=== PATIENT | male | born 1950 | race Caucasian/White ===

== ENCOUNTER 2018-01-12 04:35 | Observation (INO) | payer OTHER ==
[2018-01-12] MEDS ORDERED: ASPIRIN CHEWABLE PO STA (05:00)
[2018-01-12] MEDS ORDERED: ASPIRIN CHEWABLE ONE (05:02)
--- NOTE | 2018-01-12 05:04 | ED.PDOC ---
General ED Provider: Dr. MERVIN CHÁVEZ Chief Complaint: Chest Pain Stated Complaint: Woke up with mid sternal chest pain, checked BP, was high, came for the evaluation, chest pain resolved now,. Was on Statins, but was stopped by PMD. no headache, or blurry vision Time Seen by Physician: 05:01 Mode of Arrival: Walk-In Information Source: Patient Primary Care Provider: LIUS MISHRA Nursing and Triage Documentation Reviewed and Agree: Yes Reviewed sepsis parameters & appropriate labs ordered?: No System Inflammatory Response Syndrome: Not Applicable Sepsis Protocol: For patient's 13 years and over: Temp is 96.8 and below OR 101 and greater Pulse >90 BPM Resp >20/minute Acutely Altered Mental Status Are patient's symptoms suggestive of a new infection, such as: -Pneumonia -Skin, Soft Tissue -Endocarditis -UTI -Bone, Joint Infection -Implantable Device -Acute Abdominal Infection -Wound Infection -Meningitis -Blood Stream Catheter Infection -Unknown Cardiovascular Complaint Exam - Chest Pain Complaint/Exam Onset: Sudden Symptoms Are: Still present Initial Severity: Moderate Current Severity: Moderate Location: Reports: Midsternal Pain Radiates: Reports: None Character: Reports: Aching, Tightness Aggravating: Reports: None Alleviating: Reports: None Associated Signs and Symptoms: Denies: Diaphoresis, Nausea, Vomiting, Fever, Palpitations, Cough, Hemoptysis, Back pain, Abdominal pain, Dizziness, Short of air, Calf pain, Calf swelling Related Surgical History: Reports: None History of Healthcare-Acquired Pneumonia: Reports: No AMI/ACS Risk Factors: Reports: None TAD Risk Factors: Reports: None Pulmonary Embolism Risk Factors: Reports: None Prior Care for this Complaint: No Recent Stress Test: No Recent Echo/LV Function: No JVD Present: No Subcutaneous Emphysema Present: No Diminshed Breath Sounds: No Reproducible Chest Wall Pain: No Bilateral Pulses Present: No Unequal Pulses Noted: No If Risk Factors for AMI/ACS Consider: EKG, Cardiac Enzymes, Serial Studies, Oxygen, Aspirin Differential Diagnoses: ACS, Stable Angina Review of Systems - Review Of Systems Constitutional: Reports: No symptoms Eyes: Reports: No symptoms Ears, Nose, Mouth, Throat: Reports: No symptoms Respiratory: Reports: No symptoms Cardiac: Reports: Chest pain GI: Reports: No symptoms : Reports: No symptoms Musculoskeletal: Reports: No symptoms Skin: Reports: No symptoms Neurological: Reports: No symptoms Endocrine: Reports: No symptoms Hematologic/Lymphatic: Reports: No symptoms All Other Systems: Reviewed and Negative Past Medical History - Past Medical History Previously Healthy: Yes Endocrine: Reports: Dyslipidemia Cardiovascular: Reports: None Respiratory: Reports: None Hematological: Reports: None Gastrointestinal: Reports: None Genitourinary: Reports: None Neuro/Psych: Reports: None Musculoskeletal: Reports: None Cancer: Reports: None - Surgical History General Surgical History: Reports: None - Family History Family History: Reports: None - Social History Smoking Status: Never smoker Hx Substance Use: No Alcohol Screening: None - Immunizations Tetanus Shot up to Date: Yes Physical Exam - Physical Exam Appearance: Well-appearing, No pain distress, Well-nourished Eyes: TIM, EOMI, Conjunctiva clear ENT: Ears normal, Nose normal, Oropharynx normal Respiratory: Airway patent, Breath sounds clear, Breath sounds equal, Respirations nonlabored Cardiovascular: RRR, Pulses normal, No rub, No murmur GI/: Soft, Nontender, No masses, Bowel sounds normal, No Organomegaly Musculoskeletal: Normal strength, ROM intact, No edema, No calf tenderness Skin: Warm, Dry, Normal color Neurological: Sensation intact, Motor intact, Reflexes intact, Cranial nerves intact, Alert, Oriented Psychiatric: Affect appropriate, Mood appropriate Interpretation - Radiology Interpretation Radiology Interpretation By: ED Physician Radiology Results: Negative Exam Interpreted: CXR - EKG Interpretation Time of EKG #1: 05:00 Rate: Normal Rhythm: Sinus Ectopy: None [place]: NL ST Segment: Other (st elevation) Re-Evaluation - Re-Evaluation Time of Re-Evaluation: 06:20 Status: Improved Physician Notification - Case Discussed Time of Notification: 06:31 (Dr Villanueva, advised to get CE) Critical Care Note - Critical Care Note Total Time (mins): 30 Course - Course Hematology/Chemistry: 01/12/18 05:05 01/12/18 05:05 Orders, Labs, Meds: Lab Review 01/12/18 01/12/18 01/12/18 05:05 05:05 05:05 WBC 9.67 RBC 4.96 Hgb 15.9 Hct 43.1 MCV 86.9 MCH 32.1 H MCHC 36.9 H RDW Coeff of [place] 13.4 Plt Count 249 Immature Gran % (Auto) 0.3 Neut % (Auto) 64.6 Lymph % (Auto) 23.2 [place] % (Auto) 8.7 Eos % (Auto) 2.6 Baso % (Auto) 0.6 Immature Gran # (Auto) 0.0 Neut # (Auto) 6.3 Lymph # (Auto) 2.2 [place] # (Auto) 0.8 Eos # (Auto) 0.3 Baso # (Auto) 0.1 Sodium 142 Potassium 4.2 Chloride 107 Carbon Dioxide 24 Anion Gap 15.2 BUN 14 Creatinine 0.88 Estimated GFR (MDRD) 86.00 BUN/Creatinine Ratio 15.90 Glucose 115 Calcium 9.3 Total Bilirubin 0.7 AST 120 H ALT 100 H Alkaline Phosphatase 88 Total Creatine Kinase 119 CK-MB (CK-2) 2.2 CK-MB (CK-2) % 1.15447 Troponin I < 0.0100 B-Natriuretic Peptide 25 Total Protein 6.9 Albumin 3.9 Globulin 3.0 Albumin/Globulin Ratio 1.30 Orders Category Date Time Status EKG-(ED ONLY) Stat CARDIO 01/12/18 05:00 Completed EKG-(ED ONLY) Stat CARDIO 01/12/18 05:41 Completed ED IV/MEDIPORT/POWERPORT .ONCE EMERGENCY 01/12/18 05:06 Active B-TYPE NATRIURETIC PEPTIDE Stat LAB 01/12/18 05:05 Completed CBC W/ AUTO DIFF Stat LAB 01/12/18 05:05 Completed COMPREHENSIVE METABOLIC PANEL Stat LAB 01/12/18 05:05 Completed CREATINE KINASE Stat LAB 01/12/18 05:05 Completed CREATINE KINASE Stat LAB 01/12/18 05:05 Received TROPONIN I Stat LAB 01/12/18 05:05 Completed TROPONIN I Stat LAB 01/12/18 05:05 Received 0.9 % Sodium Chloride [Saline Flush] MEDS 01/12/18 05:06 Active 1 syr IVF PRN PRN Aspirin [Aspirin Chewable] MEDS 01/12/18 05:02 Discontinued 324 mg .ROUTE .STK-MED ONE Aspirin [Aspirin Chewable] MEDS 01/12/18 05:00 Discontinued 324 mg PO ONCE STA Nitroglycerin [Nitrostat] MEDS 01/12/18 05:06 Discontinued 0.4 mg SL ONCE STA Sodium Chloride 0.9% [Sodium Chloride] 1,000 ml MEDS 01/12/18 05:06 Active IV 100 mls/hr CHEST, 2 VIEWS PA & LAT Stat RADS 01/12/18 05:00 Completed Medications Generic Name Dose Route Start Last Admin Trade Name Freq PRN Reason Stop Dose Admin Sodium Chloride 1,000 mls @ 100 mls/hr 01/12/18 05:06 01/12/18 05:16 Sodium Chloride IV 01/12/18 15:05 100 mls/hr .Q10H STA Administration Sodium Chloride 1 syr 01/12/18 05:06 Saline Flush IVF PRN PRN To flush IV Discontinued Medications Generic Name Dose Route Start Last Admin Trade Name Freq PRN Reason Stop Dose Admin Aspirin 324 mg 01/12/18 05:00 01/12/18 05:05 Aspirin Chewable PO 01/12/18 05:01 324 mg ONCE STA Administration Nitroglycerin 0.4 mg 01/12/18 05:06 01/12/18 05:14 Nitrostat SL 01/12/18 05:07 0.4 mg ONCE STA Administration Vital Signs: Temp Pulse Resp BP Pulse Ox 01/12/18 04:36 98.2 F 53 L 20 207/99 H 98 DM Risk Score Age >/= 65: Yes >/= 3 CAD Risk Factors: No Known CAD (Stenosis >/= 50%): No ASA Use in Past 7 Days: No Severe Angina (>/= 2 episodes in 24 hours): No EKG ST Changes >/= 0.5mm: Yes DM Total Score: 2 DM Risk Score: Risk Score Odds of by 30D 0 0.1 (0.1-0.2) 1 0.3 (0.2-0.3) 2 0.4 (0.3-0.5) 3 0.7 (0.6-0.9) 4 1.2 (1.0-1.5) 5 2.2 (1.9-2.6) 6 3.0 (2.5-3.6) 7 4.8 (3.8-6.1) Departure - Departure Time of Disposition: 06:27 Disposition: PLACED OBSERVATION Discharge Problem: Chest pain Instructions: Chest Pain (ED) Condition: Stable Pt referred to PMD for follow-up: Yes IPMP verified?: No Allergies/Adverse Reactions: Allergies Penicillins Adverse Reaction (Verified 01/12/18 04:45) Home Medications: Ambulatory Orders 1 [No Reported Medications] 01/12/18 Disposition Discussed With: Patient
[2018-01-12] MEDS ORDERED: SODIUM CHLORIDE 1,000 ML IV STA (05:06)
[2018-01-12] MEDS ORDERED: NITROSTAT SL STA (05:06)
--- NOTE | 2018-01-12 05:23 | DI ---
EXAM: Two-view chest HISTORY: Chest pain COMPARISON: None. FINDINGS: The cardiac silhouette is normal in size. Atherosclerotic changes are seen involving the aortic arch. Calcified lymph nodes are seen in the AP window. There are calcified granulomas within the left lung. There is no evidence of infiltrate or effusion. IMPRESSION: Benign granulomatous changes without evidence of active pulmonary disease.
[2018-01-12] MEDS ORDERED: ZESTRIL PO STA (06:56)
[2018-01-12 10:05] VITALS: BMI 25.1
[2018-01-12] MEDS: ZESTRIL PO SCH (10:20)
[2018-01-12] MEDS: LOVENOX SUBCUT SCH (12:25)
[2018-01-12] MEDS: SODIUM CHLORIDE 1,000 ML IV SCH ×3 (15:10→23:46)
[2018-01-13] MEDS: SODIUM CHLORIDE 1,000 ML IV SCH ×2 (07:21→16:03)
[2018-01-13] MEDS: ZESTRIL PO SCH (08:42)
[2018-01-13] MEDS: LOVENOX SUBCUT SCH (08:43)
[2018-01-13 09:19] VITALS: BP 139/77; TEMP 98.7
[2018-01-13] MEDS ORDERED: ASPIRIN CHEWABLE PO SCH (11:00)
[2018-01-13] MEDS ORDERED: ASPIRIN EC PO SCH (11:15)
[2018-01-13] MEDS ORDERED: ASPIRIN EC ONE (11:24)
--- NOTE | 2018-01-13 13:44 | CT ---
EXAM: CT ABDOMEN AND PELVIS HISTORY: Upper abdominal pain for 2-3 days. Elevated enzymes TECHNIQUE: CT abdomen and pelvis without intravenous contrast. Images were reconstructed using 5 mm section thickness. Reformations were prepared. COMPARISON: None FINDINGS: Diagnostic limitations exist without including contrast enhanced images. No focal hepatic lesions id entified. A few splenic calcifications. The gallbladder is packed with small gallstones. Pancreas and adrenal glands are within normal limits. Kidneys and ureters are within normal limits. Mild ath erosclerotic disease. Stomach is within normal limits. Normal appendix. Bowel gas pattern is nonob structive. Urinary bladder is normal. No prostate enlargement. There is no ascites. No ventral abd ominal wall hernia. Transitional vertebral body anatomy at the lumbosacral junction. Lung bases are free of infiltrate. No pneumoperitoneum IMPRESSION: The gallbladder is packed with gallstones. No obvious pericholecystic stranding or fluid or gallbladder wall thickening. Otherwise findings within normal limits.
--- NOTE | 2018-01-13 14:50 | HP ---
CHIEF COMPLAINT: Epigastric pain (I asked the patient to pinpoint the pain with his finger and he pointed to an area below the sternum). HISTORY OF PRESENT ILLNESS: The patient woke up about three o'clock in the morning with epigastric pain and nausea but no vomiting or diarrhea. He registered in the emergency room at 4: 36 a.m. 1 hour and 36 minutes from the time of pain. The patient during that time denied any pain or the pain has resolved. He was concerned about the pain since he never had this pain before that he wanted to be checked out and assured it is not his heart that was giving the pain. He describes the pain as some sort of indigestion. The patient's workup in the emergency room revealed no acute changes in the electrocardiogram and the cardiac enzymes and isoenzymes were normal and the repeat troponin, hours after the first one, was still normal. The patient was then admitted for further workup. The emergency room doctor noted midsternal chest pain as well as the nurse on intake although she mentioned epigastric pain. The ER M.D. also noted midsternal pain. The patient categorically told me that he did not have any chest pain and pointed to the area below the sternum in the epigastric region. Workup in the emergency room showed an elevated AST and ALT. Chest x-ray was unremarkable. This patient again was admitted for further workup and stress echocardiogram to have some certainty that the pain was not cardiac in origin. The patient was told to have abnormal lipids and was on statin medication but he stopped the medication on his own because of some joint aches, maybe muscle. He had gained some weight, use to weigh about 145 and the patient now registers at 170 lbs, 5'9", BMI 25.1. He claimed to go yearly for yearly examination and also had colonscopy recently. FAMILY HISTORY: Father had history of cardiac problems and some members of the paternal family had myocardial infarction. Mother had cardiac disorders and congestive heart failure. Sister has cardiac disorders and some thyroid disease in the family. SOCIAL HISTORY: The patient is , never did smoke, no alcoholic beverages. He is not on any medication now since he stopped the statin medication. MEDICATIONS: (prior to this admission) None ALLERGIES: THE PATIENT HAS REACTION TO PENICILLIN REVIEW OF SYSTEMS: CONSTITUTIONAL: The patient has no fever, no chills and no significant fatigue. SECURITY MANAGER: Denies any headaches, syncope or seizure disorders. VISUAL: Denies any double vision, blurred or loss of vision. AUDITORY: Hearing is good and denies any ringing pain or drainage in both ears. RESPIRATORY: Denies any significant cough, no shortness of breath on exertion. CARDIOVASCULAR: The patient has denied any chest pain although he had some epigastric pain with nausea that lasted for about 1 1/2 hours and then resolved. GASTROINTESTINAL: The patient has epigastric pain with nausea but no vomiting or diarrhea and had elevated AST and ALT. GENITOURINARY: Denies any pain on urination. Denies any frequency. MUSCULOSKELETAL: Denies any significant joint pains since he stopped the statin. ENDOCRINE: Negative. INTEGUMENT: Denies any rash or pruritus. HEMATOLOGIC: No history of prolonged bleeding. PSYCHIATRIC: Affect is normal. PHYSICAL EXAMINATION: GENERAL: 67-year-old male admitted to the hospital because of epigastric pain with nausea that lasted for an hour and one-half. No diaphoresis. He presented to the emergency room and was noted to have an elevated AST and ALT with normal cardiac enzymes and unremarkable electrocardiogram. HEAD: Unremarkable. Scalp - no active dermatitis. Face is symmetrical and equal with no facial redness. No significant tenderness in the frontomaxillary sinus areas to palpation and/or pressure. EYES: Pupils equal/reactive to light. Conjunctivae not pale. Sclerae not icteric. MOUTH: Unremarkable. THROAT: No inflammation, tumors or exudate. NECK: No masses. No bruit. No tenderness. No rigidity. CHEST: Symmetrical and equal with good expansion with no remarkable tenderness. LUNGS: Clear to auscultation in both sides. HEART: Audible and regular with good tones. No murmurs. ABDOMEN: Flat, soft with no remarkable tenderness. No guarding. Bowel sounds active. No masses palpable. EXTERNAL GENITALIA: Not examined. RECTAL: Not done. LOWER EXTREMITIES: Symmetrical and equal with no significant edema. Pedal pulses are present. UPPER EXTREMITIES: Symmetrical and equal. ASSESSMENT: 1. ACUTE GALLBLADDER COLIC 2. ELEVATED TRANSAMINASE PROBABLY SECONDARY TO #1 3. HISTORY OF STATIN USE BUT STOPPED THE MEDICATION BY HIMSELF 4. HISTORY OF DYSLIPIDEMIA LEADING TO THE USE OF STATIN MTDD
[2018-01-13] MEDS ORDERED: PRAVACHOL PO SCH (21:00)
[2018-01-13] MEDS ORDERED: ZESTRIL PO SCH (21:00)
--- NOTE | 2018-01-14 12:05 | STRESSECHO ---
Date of Test: 01/13/18 Reason for Exam: CHEST PAIN Ordering Physician: DR. PARAG HERNANDEZ, HOSPITALIST/ DR. LUIS MISHRA [place] Physical Findings: S1, S2, NO S3 Resting EKG: SINUS RHYTHM/ NO ACUTE CHANGES Target Heart Rate: 129/152 S-T SEGMENT STAGE MPH/GRADE HEART RATE BPM BLOOD PRESSURE MMHG RHYTHM +/- ELEVATION DEPRESSION SYMPTOMS,COMMENTS At Rest 60 168/90 SR X NONE 1 1.7/10% 102 172/84 SR X NONE 2 2.5/12% 133 184/84 SR X NONE 3 3.4/14% 4 4.2/16% 5 5.0/18% Immediately after 155 SR X FATIGUE Durations of Exercise: 7:00 Maximum Heart Rate Reached: 155 Reason for Termination: FATIGUE 3 MINUTES POST EXERCISE: HR 90 BPM, 190/102 MMHG, SR, +/-, NO COMMENTS 5 MINUTES POST EXERCISE: HR 80 BPM, 166/96 MMHG, SR, +/-, NO COMMENTS INTERPRETATION: 98% OXYGEN SATURATION WITH EXERCISE ON ROOM AIR METS 10.1 1. NO EVIDENCE OF ISCHEMIC ST-T WAVE CHANGES 2. NO CHEST PAIN OR DISCOMFORT OR EPISODES OF PAIN 3. FEW ISOLATED PAC'S, ONE PVC 4. BLOOD PRESSURE RESPONSE--HYPERTENSION AT REST AND WITH EXERCISE AND POST EXERCISE NORMAL LEFT VENTRICULAR CONTRACTILITY RESTING AND POST EXERCISE MTDD
--- NOTE | 2018-01-14 12:24 | ECHOSTRESS ---
Date of Exam: 01/13/18 Ordering Physician: DR. ZEUS HERNANDEZ Reason for Echo: CHEST PAIN, STRESS TEST--NO ISCHEMIA M-Mode Normal Adult Results LV Dimensions Normal Adult Results AoV Opening excursions >1.6 LVEDD-base- 3.5-5.8 Ao root dimensions 2.0-3.7 LVESD-base- 3.1-4.6 L. Atrium dimensions 1.9-3.8 Post. Wall thickness 0.8-1.1 IV septum (thickness) 0.7-1.2 Post. Wall excursion 0.72-1.3 Septal motion Systolic motion R. Ventricular cavity 1.5-2.0 LVEF 60% Paradoxical septal wall motion 2-D: NORMAL LEFT VENTRICULAR CONTRACTILITY--RESTING AND POST EXERCISE M-MODE: MV: AV: TV: PV: CHAMBER SIZE: WALL MOTION: NORMAL LEFT VENTRICULAR CONTRACTILITY--RESTING AND POST EXERCISE PERICARDIUM: INTERPRETATION: 1. NORMAL LEFT VENTRICULAR CONTRACTILITY--RESTING AND POST EXERCISE MTDD
--- NOTE | 2018-01-14 12:29 | ECHO2D ---
Date of Exam: 01/13/18 Ordering Physician: DR. PARAG HERNANDEZ, HOSPITALIST/ DR. LUIS MISHRA Room #: [id number] Reason for Echo: CHEST PAIN, HYPERTENSION, DYSLIPIDEMIA M-Mode Normal Adult Results LV Dimensions Normal Adult Results AoV Opening excursions >1.6 >1.6 LVEDD-base- 3.5-5.8 4.7 Ao root dimensions 2.0-3.7 3.6 LVESD-base- 3.1-4.6 L. Atrium dimensions 1.9-3.8 3.9 Post. Wall thickness 0.8-1.1 1.1 IV septum (thickness) 0.7-1.2 1.2 Post. Wall excursion 0.72-1.3 NORMAL Septal motion NORMAL Systolic motion R. Ventricular cavity 1.5-2.0 NORMAL LVEF 60% 57% Paradoxical septal wall motion NORMAL 2-D : 2-D M Mode Echocardiogram was performed using apical four chamber and left parasternal long and short axis views. Mitral, tricuspid and aortic valves appear to be normal. Contractility of the left ventricle seems to be normal, so is the cavity size. Left atrial cavity size and aortic root appear to be normal. There is no pericardial effusion. There is no thrombus noted in the left ventricular or left aortic cavity. No mitral valve prolapse noted. M-MODE: MV: NORMAL AV: NORMAL TV: NORMAL PV: CHAMBER SIZE: NORMAL WALL MOTION: NORMAL PERICARDIUM: NORMAL INTERPRETATION: 1. BORDERLINE LEFT VENTRICULAR HYPERTROPHY 2. NORMAL VALVES 3. NORMAL LEFT VENTRICULAR CONTRACTILITY MTDD
--- NOTE | 2018-01-15 09:22 | DS ---
PATIENT IDENTIFICATION: 67 year old male experienced sudden epigastric pain upon waking about 3 o'clock in the morning. The patient was concerned that it could be his heart, so he presented to the emergency room and was seen at 4:46 a.m. The pain had resolved by then. The patient never had any chest pain according to the history that I got and I asked him to point to me where the pain is and it is below the sternum in the epigastric area. He had nausea, but no diaphoresis. He never had any pain of this kind that he can remember. The patient in the emergency room had a work up towards cardiac problems and the cardiac enzymes and isoenzymes her negative, but he AST and ALT were elevated. HOSPITAL COURSE: The patient on examination was alert, oriented times four. Not dyspneic, nor tachypneic without any pain. LUNGS: Clear to auscultation. HEART: Normal sinus rhythm. ABDOMEN: No significant tenderness or muscular guarding. Bowel sounds are active. LOWER EXTREMITIES: Pedal pulses were present and no tenderness in the calf muscles. The patient was advised of the consultation with Dr. Hernandez in order to rule out any cardiac problems. He did undergo stress echo and the stress test was negative for any ischemic changes. The echocardiogram also was unremarkable or normal. I do not have the report in front of me, but this was given to me verbally. The patient did have a hypertensive response to exercise. The patient had been taking statins previously, but he stopped the medication on his own because of some muscular and joint pains. That seemed to have resolved after he stopped the medication. I did advise about doing a CT scan of the abdomen and pelvis, since there is a possibility or a good probability that maybe the pain was coming from the gallbladder or peptic ulcer disease and probably Helicobacter gastritis. CT scan showed multiple cholelithiasis and he was advised of this and was given a copy of the report. The patient at the time of discharge was alert, ambulatory without any pain in the epigastric or chest area. He was cheerful and cooperative. LUNGS: Clear. HEART: Normal sinus rhythm. He did tell me that he is going to call his physician on 01/14/2018. I felt that he probably needed to have his gallbladder out since there are multiple stones. I explained to him how the pain is with gallbladder stones. The AST and ALT has decreased towards normal. FINAL DIAGNOSES: 1. ACUTE GALLBLADDER COLIC 2. CHOLELITHIASIS 3. HYPERTENSIVE RESPONSE TO EXERCISE 4. HISTORY OF STATIN INTOLERANCE. HE COULD NOT REMEMBER THE NAME. The patient received a dose of Pravachol 40 mg on the day of discharge. Lisinopril 20 mg and aspirin 81 mg. This patient had been on Lovenox prophylactic dose while in the hospital. I did advise the patient that I would not continue the blood pressure medication , since his blood pressure is normal with rest and had been normal while he was in the hospital. I would not also write the medication for the cholesterol, since he had some reaction to the medication. The decision on how to treat him with the above results would depend upon on his primary provided. The patient did show a good understanding, including his slasher runner who was present during the course of the discussion. SATHISH
--- NOTE | 2018-01-16 10:01 | CONS ---
DATE OF CONSULTATION: 01/13/18 (CONSULTATION FOLLOWUP) REASON FOR CONSULTATION/HISTORY OF PRESENT ILLNESS: This is a 67-year-old male seen and evaluated for chest pain, mostly epigastric pain. REVIEW OF SYSTEMS: CONSTITUTIONAL: No night sweats. No fatigue, malaise, lethargy. No fever or chills. HEENT: Eyes: No visual changes. No eye pain. No eye discharge. ENT: No sinus drainage. No epistaxis. No sinus pain. No sore throat. No odynophagia. No ear pain. No congestion. RESPIRATORY: No cough, no congestion. No hemoptysis. No shortness of breath. CARDIOVASCULAR: No angina symptoms. No CHF symptoms. No atypical chest pain for CAD. No palpitations. No orthopnea. GASTROINTESTINAL: No abdominal pain. No nausea or vomiting. No diarrhea or constipation. No hematemesis. No hematochezia. GENITOURINARY: No urgency. No frequency. No dysuria. No hematuria. No obstructive symptoms. No discharge. No pain. No significant abnormal bleeding. MUSCULOSKELETAL: No musculoskeletal pain. No joint swelling. NEUROLOGICAL: No headache. No neck pain. No syncope. No seizures. No dizziness. PSYCHIATRIC: Not anxious. No depression. No suicidal thoughts. No homicidal thoughts. SKIN: No rash. No lesions. No wounds. ENDOCRINE: No unexplained weight loss. No weight gain. HEMATOLOGIC/LYMPHATIC: No anemia. No purpura. No petechiae. No prolonged or excessive bleeding. No palpable lymph nodes. PHYSICAL EXAMINATION: GENERAL: The patient is oriented to time, place and person. VITAL SIGNS: Temperature 98, pulse 55, respiratory rate 20, BP 128/84. Pulse ox 99% on room air. HEENT: Head normocephalic, atraumatic. Eyes: Extraocular muscles are intact. Pupils are equal, round and reactive to light and accommodation. Ears: No lesions. Nose appeared normal. Throat: No exudate or erythema. NECK: Supple. No JVD, no carotid bruit. No lymphadenopathy or thyromegaly. LUNGS: Clear to auscultation. Percussion note normal. Chest symmetrical. HEART: S1, S2, no S3. No murmurs. No cyanosis or clubbing. No ascites. Pulses: Dorsalis pedis and posterior tibial pulses +1 to +2 both sides. ABDOMEN: Soft. Nontender. Bowel sounds active. No CVA tenderness. No mass felt. EXTREMITIES: No edema. Full range of motion of all extremities, equal. NEUROLOGIC: No focal deficit. Cranial nerves II through XII are grossly intact. No headache, no double vision or headache. SKIN: Not dry. Intact. Turgor - normal. LYMPHATIC: No palpable lymph nodes/no lymphedema. MUSCULOSKELETAL: Normal joints with no swelling. Muscle tone is normal. ASSESSMENT: 1. CHEST PAIN SEEMS TO BE NONCARDIAC BUT HAS SEVERAL RISK FACTORS FOR CORONARY ARTERY DISEASE LIKE FAMILY HISTORY, DYSLIPIDEMIA, HYPERTENSION. The patient underwent echocardiogram which showed borderline LVH with normal LV contractility. Stress echo - the patient had good exercise of 7 minutes with METS of 10.1. The patient did not have any ST-T wave changes suggestive of ischemia. The patient did not have any chest pain, chest discomfort, epigastric pain or discomfort. Blood pressure baseline was elevated and also post exercise elevated. Few PACs noted and one PVC noted. RECOMMENDATION: 1. The patient has abnormal liver profile with mildly elevated liver enzymes. No contraindication to statin therapy. Recommend Pravachol 40 mg p.o. daily. The patient advised to keep his non HDL to 100 or less. 2. Monitor liver profile and side effects of statin closely, that is to be done by primary care provider. 3. Agree with Zestril 20 mg twice a day. 4. BP goal 130/80 or less, discussed with the patient. 5. DASH diet discussed. 6. Recommend ultrasound of the gallbladder, liver and aorta. NOTE: The patient's BNP was 25, TSH normal. CK markers negative. Telemetry strips - no ST wave change, bradycardia noted. GFR is 86 cc/min. CONDITION: Stable Thanks for the referral. CC: DR. LUIS MISHRA M.D. [address] [place] [id number] [facility]
--- NOTE | 2018-01-16 10:03 | PN ---
CODING FOR BILLING 01/12/18 LEVEL 5 01/13/18 EXTENSIVE MTDD
--- NOTE | 2018-01-16 11:00 | CONS ---
DATE OF CONSULTATION: 01/12/18 REASON FOR CONSULTATION/HISTORY OF PRESENT ILLNESS: 67-year-old white male came to the emergency room because the patient woke up with more like an epigastric pain. I checked his blood pressure which was around 200 so he decided to come to the emergency room. The patient never has any exertional chest discomfort or chest pain but has epigastric pain that woke him up. REVIEW OF SYSTEMS: CONSTITUTIONAL: No night sweats. No weakness, fatigue, malaise, lethargy. No fever or chills. HEENT: Eyes: No visual changes. No eye pain. No eye discharge. ENT: No sinus drainage. No epistaxis. No sinus pain. No sore throat. No odynophagia. No ear pain. No congestion. RESPIRATORY: No cough, no congestion. No hemoptysis. No shortness of breath. CARDIOVASCULAR: Epigastric pain. No radiation of pain to any other part of the body. No exertional chest discomfort. No angina symptoms. No CHF symptoms. No atypical chest pain for CAD. No palpitations. No PND. No orthopnea. GASTROINTESTINAL: No abdominal pain. No nausea or vomiting. No diarrhea or constipation. No hematemesis. No hematochezia. GENITOURINARY: No urgency. No frequency. No dysuria. No hematuria. No obstructive symptoms. No discharge. No pain. No significant abnormal bleeding. MUSCULOSKELETAL: No musculoskeletal pain. No joint swelling. NEUROLOGICAL: No headache. No neck pain. No syncope. No seizures. No dizziness. PSYCHIATRIC: Not anxious. No depression. No suicidal thoughts. No homicidal thoughts. SKIN: No rash. No lesions. No wounds. ENDOCRINE: No unexplained weight loss. No weight gain. HEMATOLOGIC/LYMPHATIC: No anemia. No purpura. No petechiae. No prolonged or excessive bleeding. No palpable lymph nodes. MEDICATIONS: None. The patient use to be on Lipitor but he started having joint pain so the patient's Lipitor was discontinued by the physician. The patient's personal physician, Dalton Alvarado, is in [facility]. ALLERGIES: PENICILLIN PAST MEDICAL/SURGICAL HISTORY: Dyslipidemia, borderline The patient never had surgery. He had hospitalization with spider bite a long time ago. SOCIAL/PERSONAL/FAMILY HISTORY: The patient is a retired teacher, nonsmoker. No alcohol abuse. No drug abuse. He does all activities of daily living, active, lives with his . He does all activity of daily living. PHYSICAL EXAMINATION: GENERAL: The patient is oriented to time, place and person. VITAL SIGNS: Temperature 98.2, pulse 53/min, respiratory rate 20, BP taken just before I checked the patient was 154/78, pulse ox 98%. HEENT: Head normocephalic, atraumatic. Eyes: Extraocular muscles are intact. Pupils are equal, round and reactive to light and accommodation. Ears: No lesions. Nose appeared normal. Throat: No exudate or erythema. NECK: Supple. No JVD, no carotid bruit. No lymphadenopathy or thyromegaly. LUNGS: Clear to auscultation. Percussion note normal. Chest symmetrical. HEART: PMI not palpable on auscultation. S1, S2, no S3. Questionable Grade I/ systolic murmur. No cyanosis or clubbing. No ascites. Pulses: Dorsalis pedis and posterior tibial pulses +1 bilaterally. ABDOMEN: Soft. Nontender. Bowel sounds active. No CVA tenderness. No mass felt. EXTREMITIES: No pedal edema. Full range of motion of all extremities, equal. NEUROLOGIC: No focal deficit. Cranial nerves II through XII are grossly intact. No headache, no double vision or headache. SKIN: Not dry. Intact. Turgor - normal. LYMPHATIC: No palpable lymph nodes/no lymphedema. MUSCULOSKELETAL: Normal joints with no swelling. Muscle tone is normal. LABS: Hemoglobin 15.9, hematocrit 43, WBC 9,600, normal differential. Creatinine 0.8, BUN 14, potassium 4.2. Cholesterol 217. Triglycerides 51. BNP 25. TSH normal. EKG sinus rhythm. Left axis LVH, R wave progression. The patient's cardiac markers negative. Troponin negative. ASSESSMENT: 1. Chest pain seems to be noncardiac; epigastric or peptic ulcer, could be gallbladder. Rule out angina. I don't feel any pulsatile mass. There is no evidence of any aneurysm clinically. 2. Hypertension 3. Dyslipidemia 4. Family history of heart disease RECOMMENDATIONS: 1. Echocardiogram to evaluate LV function 2. Stress echo in the morning 3. Agree with Zestril 20 mg as an antihypertensive medication 4. Goal of blood pressure 130/80 or less discussed with the patient 5. DASH diet discussed with patient 6. CAD risk factors discussed with the patient CONDITION: Stable. Thanks for referral, will follow. [facility]
== END 2018-01-13 15:59 | disposition home or self-care (01) ==
LOC: ED 04:35 → MEDSURG B 06:48
PROVIDERS: ADMIT General Practice; ATTEND General Practice
DX: R07.9 Chest pain, unspecified (principal); K80.20 Calculus of gallbladder without cholecystitis without obstruction; R74.0 Nonspecific elevation of levels of transaminase and lactic acid dehydrogenase [LDH]; E78.5 Hyperlipidemia, unspecified; R03.0 Elevated blood-pressure reading, without diagnosis of hypertension; Z82.49 Family history of ischemic heart disease and other diseases of the circulatory system
CPT/HCPCS: 36415; 80053; 80061; 82150; 82550; 82553; 83690; 83880; 84443; 84450; 84460; 84484; 85025; 93005; 93010; 96360; 96361; 99284